=== PATIENT | female | born 1990 | race African-American/Black ===

== ENCOUNTER 2017-12-21 08:27 | Emergency (ER) | payer MEDICAID, OTHER ==
[~2017-12-21] VITALS: Ht 167.6 cm; Wt 73.9 kg
[2017-12-21] MEDS ORDERED: Lactulose 20gm/30ml UDC ORAL ONE (09:00)
--- NOTE | 2017-12-21 09:02 | Emergency Room Report ---
History of Present Illness General Chief Complaint: General Complaint Source: Patient Present Illness HPI Patient presents with 3 problems. One is that she's having hair loss. This been going on for several weeks. The hair comes out in two patches where she has changes of her skin/scalp. No pain. The second problem is that she has abdominal cramping. She sometimes goes a half week without moving her bowels. The last time she moved her bowels was a day before yesterday and last night she had this cramping. When she does have the cramping it's 10/10. There is no pain when there's no cramping. Her stools been hard. She denies passing any blood. The third problem is that her last period was abnormal. She only bled for a couple days and had spotting. She doesn't think she is but it is possible. She usually bleeds for 5 days. She denies any dysuria. Stress. No other rashes. No pets. No fevers, chills, URI sy, chest pain, dyspnea. Allergies: Coded Allergies: No Known Allergies (Unverified , 12/21/17) Patient History Past Medical History: see triage record Social History: Denies: smoking Social History Narrative has 5 yo at home Last Menstrual Period: 12/14/17 Reviewed Nursing Documentation: PMH: Agreed; PSxH: Agreed Nursing Documentation-PMH Past Medical History: No Stated History Review of Systems All Other Systems: negative except mentioned in HPI Physical Exam Vital Signs Date Time Temp Pulse Resp B/P (MAP) Pulse Ox O2 Delivery O2 Flow Rate FiO2 12/21/17 08:30 98.2 64 18 120/75 100 Room Air 98.2 Sp02 EP Interpretation: reviewed, normal General Appearance: well appearing, no apparent distress Head: normocephalic, atraumatic Eyes: bilateral eye conjunctivae pale ENT: hearing grossly normal, normal voice Neck: full range of motion, supple Respiratory: no respiratory distress, speaking full sentences Cardiovascular #1: regular rate, rhythm Cardiovascular #2: 2+ radial (R) Gastrointestinal: normal bowel sounds, non tender, soft, no mass Genitourinary: no CVA tenderness Musculoskeletal: no calf tenderness Neurologic: alert, oriented x3, normal gait, grossly normal Psychiatric: mood/affect normal Skin: normal color, other - Alopecia with a scaly plaque in a symmetrical areas the scalp Medical Decision Making Diagnostic Impression: Primary Impression: Tinea capitis Additional Impressions: Abdominal cramping Constipation Qualified Codes: K59.01 - Slow transit constipation UTI (urinary tract infection) Qualified Codes: N30.00 - Acute cystitis without hematuria Abnormal menses ER Course Patient presents with 3 problems. 1. Alopecia. Based on exam this looks like tinea capitis. Other possibilities or vitamin deficiency. The patient is pale and may have iron deficiency. This is treated with topical antifungals. 2. Patient has abdominal pain with constipation. Differential includes gastroenteritis, diverticulitis, constipation amongst others. Her exam is benign at this time. She'll be given a dose of Tylenol lactulose. 3. Patient' s period is abnormal. Differential includes stress, most others. Urinalysis and urine test will be ordered. UA with pyuria. Preg neg. Started on Macrobid. Patient remains pain free. Discussed treatment plan and findings. Patient stable for outpatient observation and treatment. Laboratory Tests Test 12/21/17 08:40 Urine Color Pale yellow Urine Appearance Clear Urine pH 7 (4.5-8.0) Urine Specific [place] 1.010 (1.005-1.035) Urine Protein Negative (NEGATIVE) Urine Glucose (UA) Negative (NEGATIVE) Urine Ketones Negative (NEGATIVE) Urine Occult Blood Negative (NEGATIVE) Urine Nitrite Positive (NEGATIVE) H Urine Bilirubin Negative (NEGATIVE) Urine Urobilinogen Normal MG/DL (0.0-1.0) Urine Leukocyte Esterase 2+ (NEGATIVE) H Urine RBC 0-2 /HPF (0 - 2) Urine WBC 2-4 /HPF (0 - 2) Urine Squamous Epithelial Cells Few /LPF (NONE/OCC) Urine Bacteria Moderate /HPF (NONE) H Urine HCG, Qualitative Negative (NEGATIVE) Last Vital Signs Date Time Temp Pulse Resp B/P (MAP) Pulse Ox O2 Delivery O2 Flow Rate FiO2 12/21/17 10:41 98.0 60 20 115/69 100 Room Air 98.0 Status: improved Disposition: HOME, SELF-CARE Condition: Improved Scripts Ketoconazole (KETOCONAZOLE) 120 Ml Shampoo 1 APPLIC TP HS, #120 ML Prov: Travis Carmichael M.D. 12/21/17 Tolnaftate (TINACTIN) 30 Gm Cream..g. 1 APPLIC TP BID, #60 GM 1 Refill Prov: Travis Carmichael M.D. 12/21/17 Acetaminophen (Tylenol) 325 Mg Tablet 650 MG ORAL Q6H PRN for Prn Pain/Headache/Temp > 101, #20 TAB 0 Refills Prov: Travis Carmichael M.D. 12/21/17 Lactulose (LACTULOSE*) 20 Gm/30 Ml Solution 30 ML ORAL BID PRN for Constipation, #240 ML 0 Refills Prov: Travis Carmichael M.D. 12/21/17 Travis Carmichael M.D. Dec 21, 2017 09:01
[2017-12-21 09:38] LABS: APPEARANCE,URINE CLEAR; BILIRUBIN, URINE NEGATIVE (NEGATIVE); COLOR,URINE PALE YELLOW; GLUCOSE, URINE (UA) NEGATIVE (NEGATIVE); KETONES,URINE NEGATIVE (NEGATIVE); LEUKOCYTE ESTERASE ,URINE 2+ (NEGATIVE); NITRITE,URINE POSITIVE (NEGATIVE); PH,URINE 7 (4.5-8.0); PROTEIN,URINE NEGATIVE (NEGATIVE); UROBILINOGEN,URINE NORMAL MG/DL (0.0-1.0)
[2017-12-21] MEDS ORDERED: TYLENOL325 MG ORAL (10:15)
[2017-12-21] MEDS ORDERED: KETOCONAZOLE120 ML TP (10:15)
[2017-12-21] MEDS ORDERED: LACTULOSE20 GM/301 ORAL (10:15)
[2017-12-21] MEDS ORDERED: TINACTIN30 GM TP (10:15)
[2017-12-21 10:41] VITALS: BP 115/69
== END 2017-12-21 10:41 | disposition home or self-care (01) ==
LOC: EMR 09:00
DX: B35.0 Tinea barbae and tinea capitis (principal); K59.00 Constipation, unspecified; R10.9 Unspecified abdominal pain
CPT/HCPCS: 81003; 81025; 87086; 87181; 99283

== ENCOUNTER 2018-09-22 10:31 | Emergency (ER) | payer MEDICAID ==
[~2018-09-22] VITALS: Ht 170.2 cm; Wt 77.1 kg
[~2018-09-22 10:31] MED LIST: KETOCONAZOLE120 ML TP; LACTULOSE20 GM/301 ORAL; TINACTIN30 GM TP; TYLENOL325 MG ORAL
[2018-09-22 10:34] VITALS: BP 113/67
[2018-09-22] MEDS ORDERED: NKM (10:37)
--- NOTE | 2018-09-22 10:40 | NUR ---
ED Nurse Note: Patient walked into ED c/o n/v for three days. last pmd was in the first week of August, patient reports spotting for 2 days in the end of August. 1 para 1
[2018-09-22 10:55] LABS: APPEARANCE,URINE SLIGHTLY CLOUDY; BILIRUBIN, URINE NEGATIVE (NEGATIVE); GLUCOSE, URINE (UA) NEGATIVE (NEGATIVE); KETONES,URINE 4+ (NEGATIVE); LEUKOCYTE ESTERASE ,URINE 1+ (NEGATIVE); NITRITE,URINE NEGATIVE (NEGATIVE); PH,URINE 6 (4.5-8.0); PROTEIN,URINE 2+ (NEGATIVE); UROBILINOGEN,URINE 1 MG/DL (0.0-1.0)
--- NOTE | 2018-09-22 11:12 | NUR ---
ED Nurse Note: Dr. Butler notified for HCG POS.
[2018-09-22 11:14] LABS: COLOR,URINE YELLOW
--- NOTE | 2018-09-22 11:35 | Emergency Room Report ---
History of Present Illness General Chief Complaint: Vomiting Source: Patient Present Illness HPI The patient complains of nausea, vomiting, fatigue and generalized weakness for the past 3 days. Patient denies cough or congestion. She denies sore throat. She denies headache or neck pain. She denies abdominal pain. She denies chest pain or shortness of breath. She denies dysuria or hematuria. She denies abdominal pain. When I inquire, she states that she did have a period last month but it was only light spotting. Her last normal period was the month prior. She is not using control. She is not sure she could be . She has no other complaints. Allergies: Coded Allergies: No Known Allergies (Unverified , 12/21/17) Patient History Past Medical History: none Social History: Denies: smoking, alcohol use, drug use Last Menstrual Period: 09/01/18,had regular period begining of August and spotting end of August Reviewed Nursing Documentation: PMH: Agreed; PSxH: Agreed Nursing Documentation-PMH Past Medical History: No Stated History Review of Systems All Other Systems: negative except mentioned in HPI Physical Exam Vital Signs Date Time Temp Pulse Resp B/P (MAP) Pulse Ox O2 Delivery O2 Flow Rate FiO2 09/22/18 10:34 98.2 76 16 98 Room Air 09/22/18 10:34 113/67 Sp02 EP Interpretation: reviewed, normal General Appearance: no apparent distress, alert, GCS 15, non-toxic Head: normocephalic, atraumatic Eyes: bilateral eye normal inspection, bilateral eye PERRL ENT: hearing grossly normal, normal pharynx, no angioedema, normal voice Neck: full range of motion, supple/symm/no masses Respiratory: chest non-tender, lungs clear, normal breath sounds, no respiratory distress, no retraction, no accessory muscle use, speaking full sentences Cardiovascular #1: regular rate, rhythm, no edema Gastrointestinal: normal bowel sounds, non tender, soft, non-distended, no guarding, no rebound Rectal: deferred Musculoskeletal: back normal, gait/station normal, normal range of motion, non- tender Neurologic: alert, oriented x3, responsive, motor strength/tone normal, sensory intact, speech normal Psychiatric: judgement/insight normal, memory normal, mood/affect normal, no suicidal/homicidal ideation Skin: normal color, no rash, warm/dry, well hydrated Medical Decision Making Diagnostic Impression: Primary Impression: Nausea and vomiting in prior to 22 weeks gestation Additional Impression: First trimester ER Course This patient has a positive test. Given her last menstrual period, she is likely an the first trimester and has nausea vomiting of . She reports that she had the same and very severe symptoms with her first . She otherwise a pill as well and is nontoxic. I do not feel like she needs any further workup at this time. She declined Zofran after I discussed the black box warning at the patient. She was given ideas for symptomatic relief and instructed to obtain vitamins and follow-up with her primary OB or primary care physician. She was given close return precautions and follow-up instructions. Laboratory Tests Test 09/22/18 10:43 Urine Color Yellow Urine Appearance Slightly cloudy Urine pH 6 (4.5-8.0) Urine Specific [place] 1.025 (1.005-1.035) Urine Protein 2+ (NEGATIVE) H Urine Glucose (UA) Negative (NEGATIVE) Urine Ketones 4+ (NEGATIVE) H Urine Blood Negative (NEGATIVE) Urine Nitrite Negative (NEGATIVE) Urine Bilirubin Negative (NEGATIVE) Urine Urobilinogen 1 MG/DL (0.0-1.0) H Urine Leukocyte Esterase 1+ (NEGATIVE) H Urine RBC 0 /HPF (0 - 2) Urine WBC 0-2 /HPF (0 - 2) Urine Squamous Epithelial Cells Moderate /LPF (NONE/OCC) H Urine Bacteria Few /HPF (NONE) Urine Mucus Moderate /LPF (NONE/OCC) H Urine HCG, Qualitative Positive (NEGATIVE) Last Vital Signs Date Time Temp Pulse Resp B/P (MAP) Pulse Ox O2 Delivery O2 Flow Rate FiO2 09/22/18 10:43 76 16 Room Air 09/22/18 10:34 98.2 113/67 98 Status: improved Condition: Improved Referrals: [facility],REFERRING (PCP) Aundrea Butler DO September 22, 2018 11:35
[2018-09-22 11:41] VITALS: BP 119/68
--- NOTE | 2018-09-22 11:43 | NUR ---
ER DISCHARGE NOTE: Patient is cleared to be discharged per ERMD, pt is aox4, on room air, with stable vital signs. pt was given dc and prescription instructions, pt was able to verbalize understanding. pt is able to ambulate with steady gait. pt took all belongings.
[2018-09-22 11:44] VITALS: BP 119/68
== END 2018-09-22 11:40 | disposition home or self-care (01) ==
LOC: EMR 11:18
DX: O21.9 Vomiting of pregnancy, unspecified (principal); Z3A.00 Weeks of gestation of pregnancy not specified
CPT/HCPCS: 81003; 81025; 99283

== ENCOUNTER 2019-06-12 14:41 | Emergency (ER) | payer OTHER ==
[~2019-06-12] VITALS: Ht 170.2 cm; Wt 77.1 kg
[~2019-06-12 14:41] MED LIST changes: +NKM
[2019-06-12 15:15] VITALS: BP 129/71
--- NOTE | 2019-06-12 15:15 | NUR ---
ED Nurse Note: Pt walked into ED w/ c/o unknown breast enlargement. Pt has and has been but states she feels stingin occassionally from ivan nipple. Pt is alert and orientedx4, ambulatory. and children present.
--- NOTE | 2019-06-12 15:30 | Emergency Room Report ---
History of Present Illness General Chief Complaint: General Complaint Source: Patient Present Illness HPI Is a 28-year-old female who presented after increased bilateral breast discomfort. Patient had been not currently breast-feeding approximately 1 month. Patient had not been having any fever. Patient had recently had some upper respiratory symptoms. Denies any fever. Denies any vomiting or diarrhea. Denies any shortness of breath. Allergies: Coded Allergies: No Known Allergies (Unverified , 12/21/17) Patient History Past Medical History: see triage record Last Menstrual Period: in 2018 Now: No Reviewed Nursing Documentation: PMH: Agreed; PSxH: Agreed Nursing Documentation-PM Past Medical History: No Stated History Review of Systems All Other Systems: negative except mentioned in HPI Physical Exam Vital Signs Date Time Temp Pulse Resp B/P (MAP) Pulse Ox O2 Delivery O2 Flow Rate FiO2 06/12/19 14:54 98.1 87 17 111/74 (86) 97 Room Air General Appearance: well appearing, no apparent distress, alert, GCS 15, non- toxic Head: normocephalic, atraumatic ENT: hearing grossly normal, normal voice Neck: full range of motion, supple Respiratory: no respiratory distress, speaking full sentences Cardiovascular #1: normal inspection, no edema, other - Slight breast engorgement to the left breast without significant erythema or nipple abrasions or lacerations noted Gastrointestinal: normal inspection, non tender, soft Neurologic: alert, motor strength/tone normal, brusher hand III-XII nml as tested, normal gait Psychiatric: mood/affect normal Skin: no rash Medical Decision Making Diagnostic Impression: Primary Impression: Breast engorgement, ER Course Patient presented for bilateral breast tenderness. Differential diagnosis include was not limited to mastitis, engorgement, Ca among others. Patient has a benign exam and does not appear to require any imaging or laboratory testing at this time. Patient appears to have some breast engorgement related breast-feeding. Does not appear to have mastitis at this time. Patient was advised to follow-up with her for recheck primary care Last Vital Signs Date Time Temp Pulse Resp B/P (MAP) Pulse Ox O2 Delivery O2 Flow Rate FiO2 06/12/19 14:54 98.1 87 17 111/74 (86) 97 Room Air Status: improved Disposition: HOME, SELF-CARE Condition: Stable Patient Instructions: Breast Engorgement Skyler Segal MD Jun 12, 2019 15:30
--- NOTE | 2019-06-12 15:32 | NUR ---
ER DISCHARGE NOTE: Patient is cleared to be discharged per ERMD, pt is aox4, on room air, with stable vital signs. pt was given dc and prescription instructions, pt was able to verbalize understanding, pt id band removed. pt is able to ambulate with steady gait. pt took all belongings.
== END 2019-06-12 15:34 | disposition home or self-care (01) ==
LOC: EMR 15:20
DX: O92.79 Other disorders of lactation (principal)
CPT/HCPCS: 99281